=== PATIENT | female | born 1970 | race African-American/Black ===

== ENCOUNTER 2016-09-02 14:13 | Emergency (ER) | payer SELFPAY ==
[~2016-09-02 14:13] MED LIST: ACTONEL; ARICEPT; ASCORBIC ACID500 MG; ASPIRIN; BUSPAR; CALCIUM 500 + D1 TAB; COREG; DICLOFENAC PO; DILANTIN; FLEXERIL PO; MULTI-DAY VITAM1 TAB; NEURONTIN; NO MEDICATIONS; PHENERGAN25 MG PO; PRILOSEC20 MG PO; PROTONIX; TEARGEN; VOLTAREN50 MG PO; ZINC SULFATE
== END 2016-09-02 14:44 | disposition home or self-care (01) ==
LOC: SED 14:13
DX: S13.4XXA Sprain of ligaments of cervical spine, initial encounter (principal); S39.012A Strain of muscle, fascia and tendon of lower back, initial encounter; X58.XXXA Exposure to other specified factors, initial encounter
CPT/HCPCS: 99283

== ENCOUNTER 2016-09-17 19:53 | Emergency (ER) | payer SELFPAY ==
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
== END 2016-09-17 21:00 | disposition home or self-care (01) ==
LOC: SED 19:53
DX: S39.012A Strain of muscle, fascia and tendon of lower back, initial encounter (principal); M79.602 Pain in left arm; I10 Essential (primary) hypertension; V49.40XA Driver injured in collision with unspecified motor vehicles in traffic accident, initial encounter; Y92.410 Unspecified street and highway as the place of occurrence of the external cause
CPT/HCPCS: 73060; 96372; 99283; J1885